=== PATIENT | male | born 1965 | race Caucasian/White ===

== ENCOUNTER → 2024-09-04 13:06 | Outpatient (REF) | payer BC, SELFPAY ==
[2024-09-04 14:57] LABS: % Basophils 0.9 % (0-2); % Eosinophils 3.7 % (0-6); % Immature Granulocytes 0.4 % (0-0.5); % Monocytes 8.4 % (1.7-9.3); % Neutrophils 56.6 % (42.2-75.2); Absolute Basophils 0.1 10^3/uL (0-0.2); Absolute Eosinophils 0.3 10^3/uL (0-0.7); Absolute Lymphocytes 2.5 10^3/uL (1.2-3.4); Absolute Monocytes 0.7 10^3/uL (0.1-0.6); Absolute Neutrophils 4.6 10^3/uL (1.4-6.5); Hematocrit 45.3 % (39.0-52.0); Hemoglobin 15.9 g/dL (13.0-18.0); Mean Corp Hgb Conc. 35.1 g/dL (33.0-37.0); Mean Corpuscular Hgb 33.1 pg (27.0-31.0); Mean Corpuscular Volume 94.4 fL (80.0-94.0); Mean Platelet Volume 9.6 fL (7.4-10.4); Nucleated Red Blood Cells % 0 % (-); Platelet Count 315 10^3/uL (130-400); Red Cell Dist. Width 12.4 % (11.5-14.5); White Blood Cell Count 8.2 10^3/uL (4.8-10.8)
[2024-09-04 15:11] LABS: ALT (SGPT) 24 U/L (0-50); AST (SGOT) 22 U/L (17-59); Albumin 4.4 g/dl (3.5-5.0); Alkaline Phosphatase 122 U/L (38-126); Blood Urea Nitrogen 9 mg/dl (9-20); Calcium 9.9 mg/dl (8.4-10.2); Carbon Dioxide 29 mmol/L (22-30); Chloride 100 mmol/L (98-107); Glucose 84 mg/dl (70-99); HDL Cholesterol 48 mg/dl; LDL Cholesterol, Calculated 177 mg/dl; Potassium 4.8 mmol/L (3.5-5.1); Sodium 140 mmol/L (135-145); Total Bilirubin 0.5 mg/dl (0.2-1.3); Total Cholesterol 262 mg/dl (50-199); Total Protein 7.2 g/dl (6.3-8.2); Triglyceride 188 mg/dl (10-149); Very Low Density Lipoprotein 37 mg/dl (0-30); eGFR > 60.00
[2024-09-04 15:47] LABS: TSH Reflex To Free T4 0.78 uIU/ml (0.47-4.68)
[2024-09-04 16:03] LABS: Erythrocyte Sed Rate 21 mm/hour (0-20)
== END ==
LOC: REG 13:06
PROVIDERS: ATTENDING PHYSICIAN Nurse Practitioner Family
DX: Z76.89 Persons encountering health services in other specified circumstances (principal); E78.5 Hyperlipidemia, unspecified; Z12.5 Encounter for screening for malignant neoplasm of prostate; M79.18 Myalgia, other site; M25.50 Pain in unspecified joint
CPT/HCPCS: 36415; 80053; 80061; 84443; 85025; 85652; 86038; 86140; G0103